=== PATIENT | male | born 1960 | race Caucasian/White ===

== ENCOUNTER → 2019-06-11 | Outpatient (CLI) | payer OTHER | END | disposition home or self-care (01) | LOC: SHCH 14:44 | PROVIDERS: ATTEND Internal Medicine Cardiovascular Disease | DX: I11.9 Hypertensive heart disease without heart failure (principal); I35.0 Nonrheumatic aortic (valve) stenosis | CPT/HCPCS: 93306 ==

== ENCOUNTER 2019-07-15 15:26 | Inpatient (IN) | payer OTHER ==
[~2019-07-15] VITALS: Ht 182.9 cm; Wt 104.8 kg
[~2019-07-15 15:26] MED LIST: AMLO-74 PO; ASCO100T12 PO; ASPI-1197 PO; CHOL100018 PO; CYAN250010 PO; CYCL10TA7 PO; FENO54TA6 PO; MULT-1258 PO; PARO-37 PO; PROC5TAB12 PO; PROP20TA7 PO; SIMV5TAB58 PO; TAMS-1 PO
[2019-07-15 16:33] LABS: BASOPHILS % (AUTO) 0.7 % (0.0-5.0); EOSINOPHILS % (AUTO) 2.9 % (0.0-8.0); HEMATOCRIT 27.8 % (42-54); LYMPHOCYTES % (AUTO) 28.8 % (21.0-51.0); MEAN CORPUSCULAR HEMOGLOBIN 30.9 pg (27.0-33.0); MEAN CORPUSCULAR HGB CONC 34.3 g/dL (32.0-36.0); MONOCYTES % (AUTO) 7.1 % (3.0-13.0); NEUTROPHILS % (AUTO) 60.5 % (40.0-77.0); NUCLEATED RED BLOOD CELLS 0.1 % (0.0-0.19); PLATELET COUNT (AUTO) 394 K/uL (130-400); RED BLOOD CELL COUNT(AUTO) 3.09 MIL/uL (4.50-6.20); WHITE BLOOD COUNT (AUTO) 7.2 K/uL (4.8-10.8)
[2019-07-15 16:49] LABS: CREATININE 1.4 mg/dL (0.5-1.5); POTASSIUM 4.1 mmol/L (3.5-5.1)
[2019-07-15 16:52] LABS: INR 1.01 (0.85-1.15); PARTIAL THROMBOPLASTIN TIME 26.8 SEC (26.3-35.5); PROTHROMBIN TIME 10.6 SEC (9.6-11.6)
[2019-07-15 16:55] LABS: ALBUMIN 2.9 g/dL (3.5-5.0); BILIRUBIN,TOTAL 0.3 mg/dL (0.2-1.0); CRP QUANTITATIVE 14.9 mg/L (0.00-9.0); TOTAL PROTEIN, SERUM 6.7 g/dL (6.0-8.3)
[2019-07-15 16:57] LABS: APPEARANCE,URINE Clear (CLEAR); BILIRUBIN,URINE Negative (NEGATIVE); COLOR,URINE Yellow (YELLOW); GLUCOSE, URINE (UA) Negative (NEGATIVE); KETONES,URINE Negative (NEGATIVE); LEUKOCYTE ESTERASE ,URINE Negative (NEGATIVE); NITRATE,URINE Negative (NEGATIVE); OCCULT BLOOD,URINE Moderate (NEGATIVE); PROTEIN,URINE Negative (NEGATIVE); UROBILINOGEN,URINE 0.2 mg/dL (0.2-1.0)
[2019-07-15 17:23] LABS: BACTERIA,URINE Rare /HPF (None Seen); SQUAMOUS EPITHELIAL CELL,UR Rare /HPF (0-2); WBC,URINE 0-1 /HPF (0-1)
[2019-07-15 18:00] LABS: ERYTHROCYTE SEDIMENTATION RATE 60 MM/HR (0-20)
[2019-07-15] MEDS ORDERED: MORPHINE SULFATE 2 MG/ML 1ML SYG IVP PRN (19:45)
[2019-07-15] MEDS ORDERED: MORPHINE SULFATE 4 MG/1ML SYG IVP PRN (19:45)
[2019-07-15] MEDS ORDERED: METOPROLOL TARTRATE 25 MG TAB ONE (19:48)
[2019-07-15] MEDS ORDERED: HYDRALAZINE HCL 20 MG/ML VIAL IV PRN (20:00)
[2019-07-15] MEDS: METOPROLOL TARTRATE 25 MG TAB PO SCH (21:00)
[2019-07-15] MEDS ORDERED: FAMOTIDINE/PF 20 MG/2 ML VIAL IV ONE (21:30)
[2019-07-15 21:50] VITALS: BP 146/74
[2019-07-15] MEDS ORDERED: METO25TA6 PO (22:13)
[2019-07-15] MEDS ORDERED: TRAM50TA4 PO (22:13)
[2019-07-15] MEDS ORDERED: FERR325T22 PO (22:13)
[2019-07-16] VITALS: BP 134/76
[2019-07-16 04:00] VITALS: BP 139/79
--- NOTE | 2019-07-16 08:22 | NUR ---
PAGED DR. HEAD
[2019-07-16 08:29] VITALS: BP 133/90
[2019-07-16 08:52] LABS: BASOPHILS % (AUTO) 0.9 % (0.0-5.0); EOSINOPHILS % (AUTO) 2.5 % (0.0-8.0); HEMATOCRIT 28.4 % (42-54); LYMPHOCYTES % (AUTO) 31.6 % (21.0-51.0); MEAN CORPUSCULAR HEMOGLOBIN 30.6 pg (27.0-33.0); MEAN CORPUSCULAR HGB CONC 34.5 g/dL (32.0-36.0); MEAN CORPUSCULAR VOLUME 88.5 fL (79-99); MONOCYTES % (AUTO) 7.8 % (3.0-13.0); NEUTROPHILS % (AUTO) 57.2 % (40.0-77.0); PLATELET COUNT (AUTO) 355 K/uL (130-400); RED BLOOD CELL COUNT(AUTO) 3.21 MIL/uL (4.50-6.20); WHITE BLOOD COUNT (AUTO) 7.6 K/uL (4.8-10.8)
[2019-07-16] MEDS: FAMOTIDINE/PF 20 MG/2 ML VIAL IV SCH (09:01)
[2019-07-16] MEDS: METOPROLOL TARTRATE 25 MG TAB PO SCH ×2 (09:01→19:28)
[2019-07-16 09:04] LABS: CREATININE 1.5 mg/dL (0.5-1.5); INR 1.02 (0.85-1.15); POTASSIUM 4.3 mmol/L (3.5-5.1); PROTHROMBIN TIME 10.7 SEC (9.6-11.6)
[2019-07-16 09:10] LABS: ALBUMIN 2.9 g/dL (3.5-5.0); BILIRUBIN,TOTAL 0.4 mg/dL (0.2-1.0); MAGNESIUM 1.8 mg/dL (1.80-2.40); TOTAL PROTEIN, SERUM 6.7 g/dL (6.0-8.3)
--- NOTE | 2019-07-16 10:00 | NUR ---
spoke w maria fernanda asif ,stated dr. pittman was aware and she would place orders in later today
[2019-07-16] MEDS ORDERED: POTASSIUM CHLORIDE 20MEQ/100ML 100 ML IV PRN (11:00)
[2019-07-16] MEDS ORDERED: MAGNESIUM 2GM PREMIX 50ML 50 ML IV PRN (11:00)
[2019-07-16] MEDS ORDERED: POTASSIUM CHLORIDE 10% ELIXIR 20 MEQ/15 ML UDCUP PO PRN (11:00)
--- NOTE | 2019-07-16 11:00 | NUR ---
AJAY - AWARE OF PT'S STATUS SYMPTOMS , NUMBNESS OF THE LEG DECREASED SENSATION SWELLING AND PEDAL PULSES FAINT ON RIGHT LEG STATED , DR. HEAD IS AWARE BUT THEY WONT GET TO THE PATIENT UNTIL TOMORROW STATED , PT CAN HAVE A DIET AND NPO AFTER MIDNIGHT AND THAT SHE , HERSELF WOULD PLACE ORDERS LATER TODAY FOR PLAN OF CARE
[2019-07-16 11:33] VITALS: BP 141/77
[2019-07-16] MEDS: ACETAMINOPHEN 325 MG TAB PO PRN ×2 (14:31→22:44)
--- NOTE | 2019-07-16 15:57 | NUR ---
DCP CM met with pt discussed dc plans. Pt is independent prior to admission, lives at home with spouse. Pt states he goes to [facility] prior to admission due to prior surgery. Pt feels safe to go back home, spouse able to assist with transportation and needs as necessary. DC plan to home once stable. CM to cont to follow up. Addendum: 07/16/19 at 1558 by IBRAHIMA MORGAN LVN CM Amended: Links added.
--- NOTE | 2019-07-16 16:00 | NUR ---
paged maria fernanda asif again she stated he is still trying to coordinate with schedule but she will call me later
[2019-07-16] MEDS ORDERED: ONDANSETRON HCL 4 MG/2 ML VIAL ONE (16:44)
[2019-07-16] MEDS ORDERED: TRAM50TA4 PO (16:52)
[2019-07-16] MEDS ORDERED: ONDANSETRON HCL 4 MG/2 ML VIAL IVP PRN (17:00)
--- NOTE | 2019-07-16 17:12 | NUR ---
ANA AWARE THAT , PER EKG TECH THEY ARE NOT ABLE TO DO VENOUS DOPPLER , UNTIL THE ANEURYSM IS TAKEN CARE OF. NO NEW ORDERS
[2019-07-16 17:38] VITALS: BP 139/72
[2019-07-16 19:00] VITALS: BP 124/69
--- NOTE | 2019-07-16 19:00 | NUR ---
dr. pittman still pending call from maria fernanda, made aware am leaving for my shift but night nurse will be bruce and ext [phone] she stated "thanks"
[2019-07-16] MEDS: TRAMADOL HCL 50 MG TABLET PO PRN (22:43)
[2019-07-16] MEDS ORDERED: MORPHINE SULFATE 4 MG/1ML SYG IV PRN (23:45)
[2019-07-16] MEDS ORDERED: MORPHINE SULFATE 4 MG/1ML SYG ONE (23:52)
[2019-07-17] VITALS (7 sets, daily range): BP systolic 99–153; BP diastolic 63–91
[2019-07-17 05:05] LABS: HEMATOCRIT 28.1 % (42-54); MEAN CORPUSCULAR HEMOGLOBIN 30.7 pg (27.0-33.0); MEAN CORPUSCULAR HGB CONC 34.5 g/dL (32.0-36.0); PLATELET COUNT (AUTO) 314 K/uL (130-400); RED BLOOD CELL COUNT(AUTO) 3.16 MIL/uL (4.50-6.20); RED CELL DISTRIBUTION WIDTH 12.8 % (11.0-15.5); WHITE BLOOD COUNT (AUTO) 7.9 K/uL (4.8-10.8)
[2019-07-17 05:19] LABS: CREATININE 1.5 mg/dL (0.5-1.5); MAGNESIUM 2.3 mg/dL (1.80-2.40); POTASSIUM 4.7 mmol/L (3.5-5.1)
[2019-07-17] MEDS: MORPHINE SULFATE 2 MG/ML 1ML SYG IVP PRN (06:53)
[2019-07-17] MEDS: ONDANSETRON HCL 4 MG/2 ML VIAL IVP PRN (06:53)
[2019-07-17] MEDS: METOPROLOL TARTRATE 25 MG TAB PO SCH ×2 (10:13→20:48)
[2019-07-17] MEDS: FAMOTIDINE/PF 20 MG/2 ML VIAL IV SCH (10:13)
[2019-07-17] MEDS ORDERED: KETOROLAC TROMETHAMINE 15MG/ML ONE (10:23)
[2019-07-17] MEDS ORDERED: KETOROLAC TROMETHAMINE 15MG/ML IM ONE (11:27)
--- NOTE | 2019-07-17 14:10 | NUR ---
DR. ADILENE SKINNER CALLED MD DIRECTLY TO CELL PHONE PROVIDED TO REPORT CT ANGIO ABD/PELVIS RESULTS AND VENOUS DOPPLER RESULTS. NO ANSWER AT THIS TIME. UNABLE TO LEAVE VOICEMAIL "VOICEMAIL FULL". SENT TEXT MESSAGE WITH MY DIRECT CALLBACK NUMBER. AWAITING CALLBACK
[2019-07-17] MEDS: SODIUM CHLORIDE 0.9% 1000ML 1,000 ML IV SCH (15:52)
--- NOTE | 2019-07-17 16:15 | NUR ---
DR. ADILENE FRANCISCO AWARE OF CT ANGIO/PELVIS RESULTS. STATES NO PSEUDOANEURYSM NOTED SO NO PLANS FOR SURGERY. ALSO STATES OKAY TO FEED PATIENT AND WOULD STOP BY LATER TODAY TO TALK TO PATIENT REGARDING RESULTS.
--- NOTE | 2019-07-17 18:10 | NUR ---
DR. HEAD CALLED DR. HEAD TO REPORTS US VENOUS DOPPLER RESULTS FROM 07/16/19. NURSE ANSWERED MD'S PHONE AND TOLD ME SHE WOULD TAKE MESSAGE FOR DR. HEAD. I REPLIED THAT PATIENTS US VENOUS DOPPER RESULTS POSITIVE FOR DVT IN FEMORAL VEIN. NURSE THAT ANSWERED BY CALL READBACK THE INFORMATION TO ME AND TOLD ME SHE WOULD INFORM DR. HEAD.
--- NOTE | 2019-07-17 20:00 | NUR ---
ASSESSMENT NOTE PATIENT AWAKE, ALERT, OX3, NO SOB,NO C/O PAIN AT THIS TIME, RIGHT GROIN WITH HEMATOMA ON PALPATION, BLE PEDAL PULSES PRESENT, AWAITING FOR ADILENE BOSE TO SEE PATIENT, PATIENTS AT BEDSIDE, TEACH PATIENT AND PATIENTS PLAN OF CARE AND EXPECTED OUTCOME, BOTH VERBALIZE UNDERSTANDING VIA TEACH BACK
[2019-07-18 03:15] VITALS: BP 117/67
[2019-07-18] MEDS: SODIUM CHLORIDE 0.9% 1000ML 1,000 ML IV SCH ×2 (03:48→17:40)
[2019-07-18 04:30] LABS: HEMATOCRIT 29.5 % (42-54); MEAN CORPUSCULAR HEMOGLOBIN 30.6 pg (27.0-33.0); MEAN CORPUSCULAR HGB CONC 34.6 g/dL (32.0-36.0); MEAN CORPUSCULAR VOLUME 88.5 fL (79-99); NUCLEATED RED BLOOD CELLS 0.1 % (0.0-0.19); PLATELET COUNT (AUTO) 288 K/uL (130-400); RED BLOOD CELL COUNT(AUTO) 3.33 MIL/uL (4.50-6.20); RED CELL DISTRIBUTION WIDTH 13.1 % (11.0-15.5); WHITE BLOOD COUNT (AUTO) 8.6 K/uL (4.8-10.8)
[2019-07-18 04:36] LABS: CREATININE 1.4 mg/dL (0.5-1.5); POTASSIUM 4.1 mmol/L (3.5-5.1)
[2019-07-18] MEDS: TRAMADOL HCL 50 MG TABLET PO PRN (06:57)
[2019-07-18 08:10] VITALS: BP 127/73
[2019-07-18] MEDS: FAMOTIDINE/PF 20 MG/2 ML VIAL IV SCH (08:51)
[2019-07-18] MEDS: METOPROLOL TARTRATE 25 MG TAB PO SCH ×2 (08:51→20:44)
[2019-07-18 11:10] VITALS: BP 135/79
[2019-07-18 16:16] VITALS: BP 143/77
[2019-07-18 19:10] VITALS: BP 139/70
--- NOTE | 2019-07-18 19:35 | NUR ---
md visit dr. pittman to see and examen patient with plan for surgery tomorrow, npo after midnite for surgery plan
[2019-07-18] MEDS ORDERED: CEFAZOLIN SODIUM 1 GM VIAL IVP PRN (20:00)
[2019-07-18] MEDS ORDERED: DIPHENHYDRAMINE HCL 25 MG CAPSULE PO PRN (20:15)
--- NOTE | 2019-07-18 22:00 | NUR ---
FLEETS ENEMA NO BM FOR 4 DAYS, PER ORDER FLEETS ENEMA GIVEN, TOLERATED WELL, POSITIVE BROWN STOOL RETURN
--- NOTE | 2019-07-18 22:15 | NUR ---
PREP PATIENT CLIPPED FROM CHIN TO FEET ORDERED, HIBICLENS SHOWERED GIVEN ORDERED, TOLERATED WELL
[2019-07-18 23:34] VITALS: BP 155/74
[2019-07-19] VITALS (18 sets, daily range): BP systolic 108–163; BP diastolic 61–82
[2019-07-19 04:10] LABS: HEMATOCRIT 28.4 % (42-54); MEAN CORPUSCULAR HEMOGLOBIN 30.4 pg (27.0-33.0); MEAN CORPUSCULAR HGB CONC 34.5 g/dL (32.0-36.0); MEAN CORPUSCULAR VOLUME 88.1 fL (79-99); PLATELET COUNT (AUTO) 234 K/uL (130-400); RED BLOOD CELL COUNT(AUTO) 3.23 MIL/uL (4.50-6.20); RED CELL DISTRIBUTION WIDTH 12.9 % (11.0-15.5); WHITE BLOOD COUNT (AUTO) 8.4 K/uL (4.8-10.8)
[2019-07-19 04:19] LABS: INR 1.02 (0.85-1.15); PARTIAL THROMBOPLASTIN TIME 28.5 SEC (26.3-35.5); PROTHROMBIN TIME 10.7 SEC (9.6-11.6)
[2019-07-19 04:26] LABS: CREATININE 1.1 mg/dL (0.5-1.5); POTASSIUM 3.8 mmol/L (3.5-5.1)
[2019-07-19] MEDS: SODIUM CHLORIDE 0.9% 1000ML 1,000 ML IV SCH ×3 (06:49→23:33)
[2019-07-19] MEDS: FAMOTIDINE/PF 20 MG/2 ML VIAL IV SCH (07:19)
[2019-07-19] MEDS: METOPROLOL TARTRATE 25 MG TAB PO SCH ×2 (09:39→20:19)
[2019-07-19] MEDS ORDERED: LIDOCAINE PF 2% 5ML ABBOJECT ONE (13:49)
[2019-07-19] MEDS ORDERED: FENTANYL CITRATE PF 50 MCG/1 ML 2ML VIAL ONE (13:49)
[2019-07-19] MEDS ORDERED: ROCURONIUM 10MG/1ML SYR 10 MG/ML ML ONE (13:49)
[2019-07-19] MEDS ORDERED: PROPOFOL 10 MG/ML 20ML VIAL IV ONE (13:49)
[2019-07-19] MEDS ORDERED: MIDAZOLAM HCL 1 MG/ML 2ML VIAL ONE (13:49)
--- NOTE | 2019-07-19 13:51 | NUR ---
TRANSFER TO PREOP PATIENT TRANSFERRED TO PREOP PENDING RIGHT GROIN LYMPOCELE DRAINAGE. VITAL SIGNS STABLE, AAOX3. PATIENT AND TO BE TRANSFERRED TO TELEMETRY FLOOR AFTER PROCEDURE.
[2019-07-19] MEDS ORDERED: ONDANSETRON HCL 4 MG/2 ML VIAL ONE (14:16)
[2019-07-19] MEDS ORDERED: DiphenhydrAMINE HCL 50 MG/ML VIAL ONE (14:16)
[2019-07-19] MEDS ORDERED: SUCCINYLCHOLINE 200MG/10ML SYR ONE (14:18)
--- NOTE | 2019-07-19 14:25 | NUR ---
REPORT CALLED REPORT GIVEN TO DANIELA ADAMS REGARDING PENDING SURGERY AND TRANSFER TO ROOM 230
[2019-07-19] MEDS ORDERED: BACITRACIN 50,000 UNIT VIAL ONE (14:34)
[2019-07-19] MEDS ORDERED: BUPIVACAINE/PF 0.5% 30ML VIAL ONE (14:37)
[2019-07-19] MEDS ORDERED: GLYCOPYRROLATE 1 MG/5 ML SYRINGE ONE (14:40)
[2019-07-19] MEDS ORDERED: NEOSTIGMINE 5MG/5ML SYR IV ONE (14:40)
[2019-07-19] MEDS ORDERED: MEPERIDINE-PF 25 MG/ML SYG ONE (15:43)
--- NOTE | 2019-07-19 20:00 | NUR ---
PM NOTE PATIENT RESTING IN BED, WATCHING TV. NO S/S OF DISTRESS. STATES PAIN TO RIGHT GROIN. RIGHT GROIN SITE C/D/I, OLIMPIA DRAIN NOTED. NO BLEEDING OR SWELLING NOTED. FAMILY AT BEDSIDE. ON TELEMETRY PATIENT RUNNING SR AT 95. ENCOURAGED TO CALL FOR ASSISTANCE. VERBALIZED UNDERSTANDING. CALL LIGHT WITHIN REACH.
[2019-07-19] MEDS: APIXABAN 5 MG TABLET PO SCH (20:19)
[2019-07-19] MEDS: TRAMADOL HCL 50 MG TABLET PO PRN (20:20)
[2019-07-19] MEDS: MORPHINE SULFATE 2 MG/ML 1ML SYG IVP PRN (23:07)
[2019-07-20 00:03] VITALS: BP 138/83
[2019-07-20] MEDS: ACETAMINOPHEN 325 MG TAB PO PRN ×2 (00:44→14:47)
[2019-07-20] MEDS: MORPHINE SULFATE 2 MG/ML 1ML SYG IVP PRN (03:22)
[2019-07-20] MEDS: ONDANSETRON HCL 4 MG/2 ML VIAL IVP PRN (03:24)
[2019-07-20 03:53] LABS: HEMATOCRIT 30.5 % (42-54); MEAN CORPUSCULAR HEMOGLOBIN 29.9 pg (27.0-33.0); MEAN CORPUSCULAR HGB CONC 33.9 g/dL (32.0-36.0); MEAN CORPUSCULAR VOLUME 88.3 fL (79-99); PLATELET COUNT (AUTO) 219 K/uL (130-400); RED BLOOD CELL COUNT(AUTO) 3.45 MIL/uL (4.50-6.20); RED CELL DISTRIBUTION WIDTH 12.9 % (11.0-15.5); WHITE BLOOD COUNT (AUTO) 11.1 K/uL (4.8-10.8)
[2019-07-20 04:05] LABS: CREATININE 1.3 mg/dL (0.5-1.5); POTASSIUM 3.6 mmol/L (3.5-5.1)
[2019-07-20 04:20] VITALS: BP 150/78
--- NOTE | 2019-07-20 05:12 | NUR ---
PAGED DR. DOE SPOKE TO DR. DOE REGARDING PT HAVING >101 FEVERS AND PAIN TO DRAIN SITE. PATIENT WAS GIVEN PRN DOSE OF MORPHINE AND INFORM DR. DOE SITE TO GROIN HAD SOME DRAINAGE. WBC THIS AM WERE ALSO AT 11.1 OPPOSE TO 07/19 WHICH WERE 8.4. ORDERS WERE GIVEN TO CHANGE DRESSING RIGHT NOW AND START PATIENT ON ZOSYN Q12H. DR. DOE ALSO ORDERED TO D/C MORPHINE AND KEEP PATIENT ON TRAMADOL. NO OTHER ORDERS GIVEN. ORDERS READ BACK AND NOTED.
[2019-07-20] MEDS: ZOSYN 3.375GM+NS 50ML 50 ML IV SCH ×2 (06:23→17:41)
[2019-07-20 07:32] VITALS: BP 129/71
[2019-07-20] MEDS: METOPROLOL TARTRATE 25 MG TAB PO SCH ×2 (09:27→22:05)
[2019-07-20] MEDS: FAMOTIDINE/PF 20 MG/2 ML VIAL IV SCH (09:27)
[2019-07-20] MEDS: APIXABAN 5 MG TABLET PO SCH ×2 (09:27→22:05)
[2019-07-20] MEDS: TRAMADOL HCL 50 MG TABLET PO PRN ×2 (09:53→22:18)
[2019-07-20 11:30] VITALS: BP 103/66
[2019-07-20] MEDS ORDERED: VANCOMYCIN PROTOCOL PER PHARMACY IV SCH (14:30)
[2019-07-20] MEDS ORDERED: VANCOMYCIN 2 GM in SODIUM CHLORIDE 0.9% 500ML 500 ML IV ONE (14:30)
[2019-07-20] MEDS ORDERED: COMPOUND IV REFRIGERATED 1 EACH IVSOLN MISC PRN (14:30)
[2019-07-20 15:05] VITALS: BP 106/56
[2019-07-20] MEDS ORDERED: PHARMACY COMMUNICATION MISC SCH (20:15)
[2019-07-20 20:29] VITALS: BP 101/65
[2019-07-20] MEDS: BACITRACIN 28.4 GM OINT TP SCH (22:07)
[2019-07-20] MEDS: SODIUM CHLORIDE 0.9% 1000ML 1,000 ML IV SCH (22:18)
[2019-07-21] VITALS: BP 111/60
[2019-07-21] MEDS ORDERED: ZOSYN 3.375GM+NS 50ML 50 ML IV SCH (02:00)
[2019-07-21] MEDS ORDERED: VANCOMYCIN 1GM+NS 250ML 250 ML IV SCH (02:00)
[2019-07-21] MEDS ORDERED: ZOSYN 3.375GM+NS 50ML 50 ML IV ONE (02:44)
[2019-07-21 03:39] LABS: HEMATOCRIT 24.8 % (42-54); MEAN CORPUSCULAR HEMOGLOBIN 29.7 pg (27.0-33.0); MEAN CORPUSCULAR HGB CONC 33.7 g/dL (32.0-36.0); MEAN CORPUSCULAR VOLUME 88.3 fL (79-99); PLATELET COUNT (AUTO) 159 K/uL (130-400); RED BLOOD CELL COUNT(AUTO) 2.81 MIL/uL (4.50-6.20); RED CELL DISTRIBUTION WIDTH 13.1 % (11.0-15.5); WHITE BLOOD COUNT (AUTO) 11.3 K/uL (4.8-10.8)
[2019-07-21 03:48] LABS: BAND NEUTROPHILS % (MANUAL) 4 % (0-2); CREATININE 1.4 mg/dL (0.5-1.5); LYMPHOCYTES % (MANUAL) 22 % (22-44); MONOCYTES % (MANUAL) 6 % (2-9); POTASSIUM 3.6 mmol/L (3.5-5.1); SEGMENTED NEUTROPHILS % 68 % (40-70)
[2019-07-21 03:49] LABS: MAN.DIFF COMMENT-IMPRESSION MANUAL DIFFERENTIAL; PLATELET MORPHOLOGY COMMENT ADEQUATE
[2019-07-21 04:04] VITALS: BP 118/63
[2019-07-21 07:24] VITALS: BP 123/82
--- NOTE | 2019-07-21 08:15 | NUR ---
AM ASSESSMENT PT LAYING IN BED, HOB ELEVATED 30 DEGREES, RESTING. SPOUSE @ BEDSIDE. A/O X 3. NO SOB. NO DISTRESS NOTED. DENIES CHEST PAIN OR DISCOMFORT. DENIES PALPITATIONS. TELE: SR/STACH. 0.9% NACL INFUSING @ 75 ML/HR. DENIES N/V AND/OR DIARRHEA. RT GROIN DSG DRY & INTACT. NO BLEEDING, NO HEMATOMA, & NO DRAINAGE NOTED. OLIMPIA DRAIN PATENT & DRAINING. (+) EDEMA RLE. (+) PEDAL PULSES. RLE ELEVATED. UP TO CHAIR W/ASSISTANCE. INSTRUCTED TO CALL FOR ASSISTANCE. CALL CHARLY W/IN REACH.
[2019-07-21] MEDS: APIXABAN 5 MG TABLET PO SCH ×2 (08:46→23:08)
[2019-07-21] MEDS: METOPROLOL TARTRATE 25 MG TAB PO SCH ×2 (08:46→23:09)
[2019-07-21] MEDS: VANCOMYCIN 1GM+NS 250ML 250 ML IV SCH ×2 (08:47→23:06)
[2019-07-21] MEDS: POTASSIUM CHLORIDE 20 MEQ ERTAB PO PRN ×2 (08:49→13:28)
[2019-07-21] MEDS: FAMOTIDINE 20MG TAB 20 MG TAB PO SCH (09:05)
[2019-07-21] MEDS: TRAMADOL HCL 50 MG TABLET PO PRN ×3 (09:06→18:03)
[2019-07-21 11:18] VITALS: BP 101/61
[2019-07-21] MEDS: SODIUM CHLORIDE 0.9% 1000ML 1,000 ML IV SCH (13:16)
[2019-07-21] MEDS: ZOSYN 3.375GM+NS 50ML 50 ML IV SCH ×2 (13:17→23:07)
[2019-07-21] MEDS: ACETAMINOPHEN 325 MG TAB PO PRN (13:28)
--- NOTE | 2019-07-21 14:30 | NUR ---
DSG CHANGE DSG CHANGE TO RT GROIN DONE @ THIS TIME. NO DRAINAGE NOTED. NO HEMATOMA NOTED. OLIMPIA DRAIN ANCHORED IN PLACED, PATENT & DRAINING. BACITRACIN, 4x4s, & PAPER TAPE APPLIED.
[2019-07-21 15:06] VITALS: BP 101/60
[2019-07-21] MEDS: BACITRACIN 28.4 GM OINT TP SCH ×2 (15:15→23:07)
[2019-07-21] MEDS: ONDANSETRON HCL 4 MG/2 ML VIAL IVP PRN (18:04)
[2019-07-21 20:40] VITALS: BP 121/64
[2019-07-22] VITALS (7 sets, daily range): BP systolic 109–126; BP diastolic 57–70
[2019-07-22] MEDS: SODIUM CHLORIDE 0.9% 1000ML 1,000 ML IV SCH (02:15)
[2019-07-22 03:49] LABS: HEMATOCRIT 22.2 % (42-54); MEAN CORPUSCULAR HEMOGLOBIN 29.4 pg (27.0-33.0); MEAN CORPUSCULAR HGB CONC 33.8 g/dL (32.0-36.0); MEAN CORPUSCULAR VOLUME 87.1 fL (79-99); PLATELET COUNT (AUTO) 150 K/uL (130-400); RED BLOOD CELL COUNT(AUTO) 2.55 MIL/uL (4.50-6.20); RED CELL DISTRIBUTION WIDTH 13.6 % (11.0-15.5); WHITE BLOOD COUNT (AUTO) 8.4 K/uL (4.8-10.8)
[2019-07-22 04:02] LABS: BILIRUBIN,TOTAL 0.4 mg/dL (0.2-1.0); CREATININE 1.8 mg/dL (0.5-1.5); POTASSIUM 3.8 mmol/L (3.5-5.1); TOTAL PROTEIN, SERUM 5.5 g/dL (6.0-8.3)
[2019-07-22 04:06] LABS: BAND NEUTROPHILS % (MANUAL) 1 % (0-2); EOSINOPHILS % (MANUAL) 1 % (1-6); LYMPHOCYTES % (MANUAL) 15 % (22-44); MONOCYTES % (MANUAL) 5 % (2-9); REACTIVE LYMPHOCYTES 1 % (0-0); SEGMENTED NEUTROPHILS % 77 % (40-70)
[2019-07-22 04:07] LABS: MAN.DIFF COMMENT-IMPRESSION MANUAL DIFFERENTIAL; PLATELET MORPHOLOGY COMMENT ADEQUATE
[2019-07-22] MEDS: ZOSYN 3.375GM+NS 50ML 50 ML IV SCH ×3 (05:00→22:06)
[2019-07-22] MEDS: FAMOTIDINE 20MG TAB 20 MG TAB PO SCH (08:35)
[2019-07-22] MEDS: METOPROLOL TARTRATE 25 MG TAB PO SCH ×2 (08:36→22:05)
[2019-07-22] MEDS: BACITRACIN 28.4 GM OINT TP SCH ×2 (08:37→21:00)
[2019-07-22] MEDS: TRAMADOL HCL 50 MG TABLET PO PRN ×2 (08:43→19:59)
[2019-07-22] MEDS ORDERED: COMPOUND IV REFRIGERATED 1 EACH IVSOLN MISC PRN (09:00)
[2019-07-22] MEDS: VANCOMYCIN 750MG + NS 250 ML IV SCH ×4 (09:26→22:05)
[2019-07-22] MEDS: ACETAMINOPHEN 325 MG TAB PO PRN (14:12)
--- NOTE | 2019-07-22 16:58 | NUR ---
VISIT DR BORJA IN TO SEE PT. SPOUSE @ BEDSIDE. MD INFORMED ELIQUIS NOT GIVEN THIS AM DUE TO DROP IN HGB. DR DOE TO BE ASKED OF THE POSSIBILITY OF PT NEEDING AN IVC FILTER OR ANTICOAGULATION THERAPY.
--- NOTE | 2019-07-22 20:30 | NUR ---
RIGHT GROIN WOUND CARE DONE ORDERED. STERILE DRESSING APPLIED. PT TOLERATED PROCEDURE WELL
--- NOTE | 2019-07-23 01:30 | NUR ---
Dr Storm in to [facility] patient
[2019-07-23] MEDS: ACETAMINOPHEN 325 MG TAB PO PRN ×4 (02:26→23:36)
[2019-07-23 03:14] VITALS: BP 127/67
[2019-07-23 03:55] LABS: BASOPHILS % (AUTO) 0.5 % (0.0-5.0); EOSINOPHILS % (AUTO) 4.3 % (0.0-8.0); LYMPHOCYTES % (AUTO) 22.4 % (21.0-51.0); MEAN CORPUSCULAR HEMOGLOBIN 30.5 pg (27.0-33.0); NEUTROPHILS % (AUTO) 64.8 % (40.0-77.0); NUCLEATED RED BLOOD CELLS 0.1 % (0.0-0.19); PLATELET COUNT (AUTO) 149 K/uL (130-400); RED BLOOD CELL COUNT(AUTO) 2.36 MIL/uL (4.50-6.20); RED CELL DISTRIBUTION WIDTH 13.1 % (11.0-15.5); WHITE BLOOD COUNT (AUTO) 6.1 K/uL (4.8-10.8)
[2019-07-23 04:04] LABS: HEMATOCRIT 20.5 % (42-54)
[2019-07-23 04:06] LABS: CREATININE 2.1 mg/dL (0.5-1.5); POTASSIUM 3.5 mmol/L (3.5-5.1)
[2019-07-23 07:00] VITALS: BP 131/79
[2019-07-23] MEDS: BACITRACIN 28.4 GM OINT TP SCH ×2 (09:00→21:00)
[2019-07-23] MEDS: ZOSYN 3.375GM+NS 50ML 50 ML IV SCH ×2 (09:41→21:13)
[2019-07-23] MEDS: APIXABAN 5 MG TABLET PO SCH ×2 (09:41→21:12)
[2019-07-23] MEDS: FAMOTIDINE 20MG TAB 20 MG TAB PO SCH (09:41)
[2019-07-23] MEDS: METOPROLOL TARTRATE 25 MG TAB PO SCH ×2 (09:41→21:12)
[2019-07-23 11:00] VITALS: BP 138/79
[2019-07-23] MEDS: ZYVOX 600 MG TAB PO SCH ×2 (11:10→21:12)
[2019-07-23] MEDS: TRAMADOL HCL 50 MG TABLET PO PRN ×3 (11:10→23:35)
[2019-07-23] MEDS ORDERED: SODIUM CHLORIDE 0.9% 250 ML IV ONE (12:53)
[2019-07-23 15:00] VITALS: BP 111/65
[2019-07-23] MEDS: ONDANSETRON HCL 4 MG/2 ML VIAL IVP PRN (17:47)
[2019-07-23] MEDS ORDERED: MORPHINE SULFATE 2 MG/ML 1ML SYG IM PRN (18:00)
[2019-07-23 19:34] VITALS: BP 132/72
[2019-07-23 23:28] VITALS: BP 125/75
[2019-07-24 03:45] VITALS: BP 127/76
[2019-07-24 04:58] LABS: HEMATOCRIT 25.3 % (42-54); MEAN CORPUSCULAR HEMOGLOBIN 29.1 pg (27.0-33.0); MEAN CORPUSCULAR HGB CONC 34.4 g/dL (32.0-36.0); MEAN CORPUSCULAR VOLUME 84.6 fL (79-99); PLATELET COUNT (AUTO) 180 K/uL (130-400); RED BLOOD CELL COUNT(AUTO) 2.99 MIL/uL (4.50-6.20); RED CELL DISTRIBUTION WIDTH 14.6 % (11.0-15.5); WHITE BLOOD COUNT (AUTO) 6.1 K/uL (4.8-10.8)
[2019-07-24 05:12] LABS: CREATININE 1.9 mg/dL (0.5-1.5); POTASSIUM 3.6 mmol/L (3.5-5.1)
--- NOTE | 2019-07-24 06:14 | NUR ---
right groin J P drained 130 ml serosanguinous fluid.
[2019-07-24 08:30] VITALS: BP 136/82
[2019-07-24] MEDS: ZYVOX 600 MG TAB PO SCH ×2 (09:15→19:45)
[2019-07-24] MEDS: APIXABAN 5 MG TABLET PO SCH ×2 (09:15→19:46)
[2019-07-24] MEDS: FAMOTIDINE 20MG TAB 20 MG TAB PO SCH (09:15)
[2019-07-24] MEDS: ZOSYN 3.375GM+NS 50ML 50 ML IV SCH ×2 (09:16→19:46)
[2019-07-24] MEDS: BACITRACIN 28.4 GM OINT TP SCH ×2 (09:16→21:41)
[2019-07-24] MEDS: METOPROLOL TARTRATE 25 MG TAB PO SCH ×2 (09:16→19:45)
[2019-07-24] MEDS: ONDANSETRON HCL 4 MG/2 ML VIAL IVP PRN (11:47)
[2019-07-24] MEDS: TRAMADOL HCL 50 MG TABLET PO PRN ×2 (11:48→21:40)
[2019-07-24] MEDS: ACETAMINOPHEN 325 MG TAB PO PRN (11:49)
[2019-07-24 12:38] VITALS: BP 113/72
--- NOTE | 2019-07-24 16:14 | NUR ---
RD NOTIFICATION DX: RIGHT FEMORAL PSEUDO ANEURYSM. HX: HTN, BPH, HYPOTHYROID, ANEMIA. DIET: HEART HEALTHY. PO INTAKE 100% AND HAS GREAT APPETITE PER PT. HE HAS BEEN FEELING A BIT NAUSEOUS X3DAYS NOW. PT HAS BEEN HAVING A DIFFICULT TIME HAVING A BM. HE HAD NOT HAD ONE SINCE MONDAY. PT FINALLY HAD ONE TODAY. SKIN INTACT, NO EDEMA. RD RECOMMENDS TO CONTINUE CURRENT DIET. RECOMMEND A STOOL SOFTENER. RD WILL CONTINUE TO MONITOR AND FOLLOW UP NEEDED. Addendum: 07/24/19 at [address]14 [address] GONZÁ[address] RD RD Amended: Links added.
[2019-07-24] MEDS ORDERED: MAG HYDROX/AL HYDROX/SIMETH ES 30 ML SUSP UDCUP PO PRN (16:15)
[2019-07-24 16:37] VITALS: BP 114/72
[2019-07-24 19:03] VITALS: BP 131/65
--- NOTE | 2019-07-24 20:00 | NUR ---
PT HAD PSEUDO ANEURYSM. PROCEDURE TO DRAIN RIGHT GROIN LYMPHOCELE. S/P HAS HAD SWELLING TO RIGHT GROIN, REDNESS/PURPLE DISCOLORATION, TENDERNESS, AND HAS OLIMPIA DRAIN. HAD TO TOUCH ON THE LOWER GROIN SITE AREA. INCISION IN PLACE. WOUND CARE PROVIDED. PT ABLE TO AMBULATE WITH ASSIST. DVT TO RIGHT LEG. STATES DR. DOE IS AWARE OF WOUND STATUS. PT ON ELIQUIS. CONTINUES TO DRAIN TO OLIMPIA DRAIN.
--- NOTE | 2019-07-24 21:30 | NUR ---
WOUND CARE COMPLETE. APPLIED ANTIBIOTIC OINTMENT. PT TENDER TO SITE. PAIN STATED.
[2019-07-24] MEDS ORDERED: POLYETHYLENE GLYCOL 3350 17 GM POWD.PACK ONE (21:38)
[2019-07-24 23:12] VITALS: BP 127/69
[2019-07-25 02:23] LABS: APPEARANCE,URINE Clear (CLEAR); BILIRUBIN,URINE Negative (NEGATIVE); COLOR,URINE Yellow (YELLOW); GLUCOSE, URINE (UA) Negative (NEGATIVE); KETONES,URINE Negative (NEGATIVE); LEUKOCYTE ESTERASE ,URINE Negative (NEGATIVE); NITRATE,URINE Negative (NEGATIVE); OCCULT BLOOD,URINE Negative (NEGATIVE); PROTEIN,URINE Negative (NEGATIVE); UROBILINOGEN,URINE 0.2 mg/dL (0.2-1.0)
[2019-07-25 03:56] VITALS: BP 122/64
[2019-07-25 04:09] LABS: BASOPHILS % (AUTO) 0.4 % (0.0-5.0); EOSINOPHILS % (AUTO) 2.1 % (0.0-8.0); HEMATOCRIT 25.4 % (42-54); LYMPHOCYTES % (AUTO) 20.5 % (21.0-51.0); MEAN CORPUSCULAR HEMOGLOBIN 29.3 pg (27.0-33.0); MEAN CORPUSCULAR HGB CONC 34.5 g/dL (32.0-36.0); MEAN CORPUSCULAR VOLUME 84.8 fL (79-99); MONOCYTES % (AUTO) 7.6 % (3.0-13.0); NEUTROPHILS % (AUTO) 69.4 % (40.0-77.0); PLATELET COUNT (AUTO) 200 K/uL (130-400); RED BLOOD CELL COUNT(AUTO) 2.99 MIL/uL (4.50-6.20); RED CELL DISTRIBUTION WIDTH 14.7 % (11.0-15.5); WHITE BLOOD COUNT (AUTO) 7.1 K/uL (4.8-10.8)
[2019-07-25 04:22] LABS: CREATININE 1.7 mg/dL (0.5-1.5); MAGNESIUM 1.8 mg/dL (1.80-2.40); PHOSPHORUS 3.5 mg/dL (2.5-4.9); POTASSIUM 3.3 mmol/L (3.5-5.1)
[2019-07-25] MEDS: POTASSIUM CHLORIDE 20 MEQ ERTAB PO PRN ×2 (06:24→16:53)
[2019-07-25] MEDS ORDERED: TRAMADOL HCL 50 MG TABLET PO PRN (07:45)
[2019-07-25] MEDS ORDERED: MORPHINE SULFATE 2 MG/ML 1ML SYG IVP PRN (07:45)
[2019-07-25 07:46] VITALS: BP 141/73
[2019-07-25] MEDS: POLYETHYLENE GLYCOL 3350 17 GM POWD.PACK PO SCH (08:09)
[2019-07-25] MEDS: FAMOTIDINE 20MG TAB 20 MG TAB PO SCH (08:09)
[2019-07-25] MEDS: BACITRACIN 28.4 GM OINT TP SCH ×2 (08:09→20:54)
[2019-07-25] MEDS: METOPROLOL TARTRATE 25 MG TAB PO SCH ×2 (08:09→20:53)
[2019-07-25] MEDS: APIXABAN 5 MG TABLET PO SCH ×2 (08:09→20:52)
[2019-07-25] MEDS: ZYVOX 600 MG TAB PO SCH ×2 (10:51→20:53)
[2019-07-25] MEDS: ZOSYN 3.375GM+NS 50ML 50 ML IV SCH ×2 (10:51→20:53)
[2019-07-25 11:17] VITALS: BP 133/79
[2019-07-25] MEDS: ACETAMINOPHEN 325 MG TAB PO PRN ×2 (14:20→20:53)
--- NOTE | 2019-07-25 15:34 | NUR ---
DC PLAN PATIENT SIGNED SHANNON FOR [facility] [place] [place] [facility]. PATIENT NEEDS THERAPY WELL OLIMPIA DRAIN AND ANTIBIOTICS. INFO FAXED AND EMAILED. LEFT MESSAGE WITH BOSSMAN OF REFERRAL. Addendum: 07/25/19 at 1536 by JULIA CELESTIN RN CM Amended: Links added.
[2019-07-25 15:36] VITALS: BP 112/67
--- NOTE | 2019-07-25 15:48 | NUR ---
DC PLAN DELAY IN SENDING REFERRAL TO IRU. PATIENT SAYS HE HAS JAW PAIN THAT STARTED ABOUT 3 DAYS AGO. HURTS TO CHEW AND FEELS JAW IS MISALIGNED. SAYS THAT COUNTY COMMISSIONER IS AWARE. NURSE SAID THAT SHE IS PENDING TO SEE WHAT DR. DRISCOLL RECOMMENDS. THERE WAS ALSO THE QUESTION REGARDING ANTIBIOTIC TREATMENT CURRENTLY ON ZYVOX PO AND SOZYN IV. WANTED TO KNOW WHICH WOULD BE CONTINUE AND FOR HOW LONG. GOT ANSWER TODAY FROM JOSE MARIA FLORES. SAID ZYVOX PO FOR 7 MORE DAYS. Addendum: 07/25/19 at 1550 by JULIA CELESTIN RN CM Amended: Links added.
[2019-07-25 19:16] VITALS: BP 131/64
[2019-07-25 23:27] VITALS: BP 123/70
[2019-07-26 03:15] VITALS: BP 150/72
[2019-07-26 03:29] LABS: BASOPHILS % (AUTO) 0.4 % (0.0-5.0); EOSINOPHILS % (AUTO) 4.5 % (0.0-8.0); HEMATOCRIT 26.9 % (42-54); LYMPHOCYTES % (AUTO) 21.9 % (21.0-51.0); MEAN CORPUSCULAR VOLUME 85.5 fL (79-99); MONOCYTES % (AUTO) 8.8 % (3.0-13.0); NEUTROPHILS % (AUTO) 64.4 % (40.0-77.0); NUCLEATED RED BLOOD CELLS 0.1 % (0.0-0.19); PLATELET COUNT (AUTO) 240 K/uL (130-400); RED BLOOD CELL COUNT(AUTO) 3.14 MIL/uL (4.50-6.20); RED CELL DISTRIBUTION WIDTH 14.5 % (11.0-15.5); WHITE BLOOD COUNT (AUTO) 6.5 K/uL (4.8-10.8)
[2019-07-26 03:37] LABS: CREATININE 1.6 mg/dL (0.5-1.5); PHOSPHORUS 3.8 mg/dL (2.5-4.9); POTASSIUM 3.4 mmol/L (3.5-5.1)
[2019-07-26] MEDS ORDERED: LIDOCAINE HCL-MPF 1% 2ML VIAL IV PRN (04:30)
[2019-07-26] MEDS ORDERED: SODIUM CHLORIDE 0.9% 100 ML IV ONE (04:38)
[2019-07-26] MEDS: ACETAMINOPHEN 325 MG TAB PO PRN (04:47)
[2019-07-26 07:00] VITALS: BP 129/72
[2019-07-26] MEDS: BACITRACIN 28.4 GM OINT TP SCH (09:00)
[2019-07-26] MEDS: POLYETHYLENE GLYCOL 3350 17 GM POWD.PACK PO SCH (09:00)
[2019-07-26] MEDS: APIXABAN 5 MG TABLET PO SCH (09:17)
[2019-07-26] MEDS: FAMOTIDINE 20MG TAB 20 MG TAB PO SCH (09:17)
[2019-07-26] MEDS: ZYVOX 600 MG TAB PO SCH (09:17)
[2019-07-26] MEDS: METOPROLOL TARTRATE 25 MG TAB PO SCH (09:18)
[2019-07-26] MEDS: POTASSIUM CHLORIDE 20 MEQ ERTAB PO PRN (09:18)
[2019-07-26] MEDS: ZOSYN 3.375GM+NS 50ML 50 ML IV SCH (09:18)
[2019-07-26] MEDS ORDERED: LACTOBACILLUS RHAMNOSUS GG 1 EACH CAP.SPRINK ONE (10:53)
[2019-07-26 11:00] VITALS: BP 137/71
[2019-07-26] MEDS ORDERED: LACTOBACILLUS RHAMNOSUS GG 1 EACH CAP.SPRINK PO SCH (11:00)
--- NOTE | 2019-07-26 12:23 | NUR ---
DC PLAN CHECKED WITH [facility] SAID THAT THEY HAVE SUBMITTED AND PLACED URGENT FOR FASTER DECISION. Addendum: 07/26/19 at 1224 by JULIA CELESTIN RN CM Amended: Links added.
[2019-07-26 15:00] VITALS: BP 133/78
--- NOTE | 2019-07-26 15:16 | NUR ---
MACKENZIE KEITA CALLED [id number] PATIENT ACCEPTED. MOT INFO GIVEN. SPOKE TO DR. DRISCOLL SIGNED MOT. SAID OKAY FOR PATIENT DISCHARGED. HAD SPOKE TO JOSE MARIA DIVIDEND CLERK REGARDING ABX. SAID NO IV JUST ZYVOX PO FOR 7 MORE DAYS. GAVE INFO TO NURSE. LET HOUSE KNOW ABOUT MOT. SPOKE TO PATIENT REGARDING TRANSPORT. SAID NO SPOUSE WILL TRANSPORT SINCE HE IS AMBULATING AND NOT ON O2 HE WOULD LIKELY GET A BILL SAID DID NOT WANT TO TAKE CHANCE. BOSSMAN CALLED WITH ADDITIONAL QUESTIONS. DR. BARBER WANTS PARAMETERS ON OLIMPIA DRAIN. LET NURSE KNOW. Addendum: 07/26/19 at 1519 by JULIA CELESTIN RN CM Amended: Links added.
--- NOTE | 2019-07-26 18:15 | NUR ---
DISCHARGE INSTRUCTIONS GIVEN, PIV REMOVED AND INTACT, REPORT CALLED TO [facility], SPOKE TO NEL RN, DISCHARGED TO FAMILY VEHICLE VIA WHEELCHAIR.
[2019-07-26] MEDS ORDERED: PSYLLIUM SEED 1 EACH PACKET PO SCH (21:00)
== END 2019-07-26 18:40 | DRG 803 ==
LOC: EDH 15:26 → EDHIP 18:12 → OBSVTOIN 18:12 → 4BH 21:08 → 2AH 07-19 16:44 → UNDODISIN 07-26 18:40
PROVIDERS: ADMIT Internal Medicine; ATTEND Internal Medicine
PROC: 07BH0ZZ Excision of Right Inguinal Lymphatic, Open Approach (ICD-10-PCS; principal; 2019-07-19 14:10)
PROC: 30233N1 Transfusion of Nonautologous Red Blood Cells into Peripheral Vein, Percutaneous Approach (ICD-10-PCS; 2019-07-23)
DX: I89.8 Other specified noninfective disorders of lymphatic vessels and lymph nodes (principal); I82.411 Acute embolism and thrombosis of right femoral vein; D62 Acute posthemorrhagic anemia; L03.314 Cellulitis of groin; J90 Pleural effusion, not elsewhere classified; E03.9 Hypothyroidism, unspecified; E78.5 Hyperlipidemia, unspecified; I10 Essential (primary) hypertension; I72.4 Aneurysm of artery of lower extremity; N40.0 Benign prostatic hyperplasia without lower urinary tract symptoms; N50.1 Vascular disorders of male genital organs; K21.9 Gastro-esophageal reflux disease without esophagitis; J45.909 Unspecified asthma, uncomplicated; Z79.01 Long term (current) use of anticoagulants; Z83.3 Family history of diabetes mellitus; Z79.899 Other long term (current) drug therapy; Z95.3 Presence of xenogenic heart valve
CPT/HCPCS: 36415; 71045; 74018; 74174; 74176; 76882; 80048; 80053; 80202; 81001; 81003; 82270; 82550; 82705; 82948; 83605; 83630; 83735; 84100; 84484; 85025; 85027; 85378; 85610; 85651; 85730; 86140; 86850; 86900; 86901; 86922; 87040; 88302; 93005; 93306; 93971; 97039; A4606; G0378; J0330; J0690; J1200; J1885; J2001; J2175; J2250; J2270; J2405; J2543; J2704; J2710; J3010; J3370; J3475; J3480; J3490; J7030; J7040; P9016; Q0163

== ENCOUNTER 2019-08-15 09:43 | Inpatient (IN) | payer OTHER ==
[~2019-08-15] VITALS: Ht 185.4 cm; Wt 98.0 kg
[~2019-08-15 09:43] MED LIST changes: -AMLO-74 PO; -ASCO100T12 PO; -CHOL100018 PO; -CYAN250010 PO; +FERR325T22 PO; +METO25TA6 PO; -MULT-1258 PO; -PROC5TAB12 PO; -PROP20TA7 PO; +TRAM50TA4 PO
[2019-08-15] MEDS ORDERED: ONDANSETRON HCL 4 MG/2 ML VIAL ONE ×2 (10:07→21:51)
[2019-08-15] MEDS ORDERED: MORPHINE SULFATE 4 MG/1ML SYG ONE (10:08)
[2019-08-15 10:36] LABS: BASOPHILS % (AUTO) 0.4 % (0.0-5.0); EOSINOPHILS % (AUTO) 2.9 % (0.0-8.0); HEMATOCRIT 33.7 % (42-54); LYMPHOCYTES % (AUTO) 18.6 % (21.0-51.0); MEAN CORPUSCULAR HEMOGLOBIN 30.2 pg (27.0-33.0); MEAN CORPUSCULAR HGB CONC 33.5 g/dL (32.0-36.0); MEAN CORPUSCULAR VOLUME 90.3 fL (79-99); MONOCYTES % (AUTO) 7.8 % (3.0-13.0); NEUTROPHILS % (AUTO) 70.3 % (40.0-77.0); PLATELET COUNT (AUTO) 197 K/uL (130-400); RED BLOOD CELL COUNT(AUTO) 3.73 MIL/uL (4.50-6.20); RED CELL DISTRIBUTION WIDTH 17.9 % (11.0-15.5); WHITE BLOOD COUNT (AUTO) 6.9 K/uL (4.8-10.8)
[2019-08-15 10:46] LABS: CREATININE 1.5 mg/dL (0.5-1.5); POTASSIUM 4.3 mmol/L (3.5-5.1)
[2019-08-15 10:50] LABS: ALBUMIN 3.2 g/dL (3.5-5.0); BILIRUBIN,TOTAL 0.4 mg/dL (0.2-1.0); CRP QUANTITATIVE 25.1 mg/L (0.00-9.0); TOTAL PROTEIN, SERUM 6.5 g/dL (6.0-8.3)
[2019-08-15 10:54] LABS: INR 1.01 (0.85-1.15); PARTIAL THROMBOPLASTIN TIME 28.7 SEC (26.3-35.5); PROTHROMBIN TIME 10.6 SEC (9.6-11.6)
[2019-08-15] MEDS ORDERED: SODIUM CHLORIDE 0.9% 500ML 500 ML IV ONE (11:27)
[2019-08-15 11:48] LABS: ERYTHROCYTE SEDIMENTATION RATE 43 MM/HR (0-20)
[2019-08-15] MEDS ORDERED: IOHEXOL-350 75 ML VIAL IV ONE (12:29)
[2019-08-15] MEDS ORDERED: VANCOMYCIN 1GM+NS 250ML 250 ML IV ONE ×2 (14:09→17:30)
[2019-08-15] MEDS ORDERED: ZOSYN 3.375GM+NS 50ML 50 ML IV ONE (15:31)
[2019-08-15] MEDS ORDERED: MORPHINE SULFATE 2 MG/ML 1ML SYG ONE (15:41)
[2019-08-15 17:08] VITALS: BP 143/78
[2019-08-15] MEDS ORDERED: VANCOMYCIN PROTOCOL PER PHARMACY IV SCH (17:15)
[2019-08-15] MEDS ORDERED: POTASSIUM CHLORIDE 20MEQ/100ML 100 ML IV PRN (17:15)
[2019-08-15] MEDS ORDERED: POTASSIUM CHLORIDE 10% ELIXIR 20 MEQ/15 ML UDCUP PO PRN (17:15)
[2019-08-15] MEDS ORDERED: LIDOCAINE HCL-MPF 1% 2ML VIAL IV PRN (17:15)
[2019-08-15] MEDS ORDERED: MORPHINE SULFATE 2 MG/ML 1ML SYG IVP PRN (17:15)
[2019-08-15] MEDS ORDERED: HYDRALAZINE HCL 20 MG/ML VIAL IV PRN (17:30)
--- NOTE | 2019-08-15 17:30 | NUR ---
ADMISSION RECEIVED PT FROM ER, A&OX3, CALM COOPERATIVE AND DOES NOT APPEAR TO BE IN ANY DISTRESS NOR ANY NEURO DEFICITS PRESENT. PT DOES C/O RT GROIN PAIN, OLIMPIA DRAIN WITH SEROSANGUINEOUS DRAINAGE PRESENT. PT IS AMBULATORY FROM GURNEY TO BED, GAIT SLOW AND UNSTEADY WITH ASSIST WITH PAIN TO RT LEG WITH WEIGHT BEARING. DP/PT PULSES PALPABLE. CALL LIGHT WITHIN REACH, FAMILY AT BEDSIDE.
[2019-08-15] MEDS ORDERED: TRAMADOL HCL 50 MG TABLET PO PRN (19:00)
[2019-08-15] MEDS ORDERED: CYCLOBENZAPRINE HCL 10 MG TABLET PO PRN (19:00)
[2019-08-15 19:06] VITALS: BP 125/88
[2019-08-15] MEDS: SIMVASTATIN 10 MG TABLET PO SCH (21:42)
[2019-08-15] MEDS: TAMSULOSIN HCL 0.4 MG CAP.ER.24H PO SCH (21:43)
[2019-08-15] MEDS: PAROXETINE HCL 20 MG TABLET PO SCH (21:44)
[2019-08-15] MEDS: METOPROLOL TARTRATE 25 MG TAB PO SCH (21:44)
[2019-08-15] MEDS: ASPIRIN 81MG TAB.CHEW PO SCH (21:44)
[2019-08-15] MEDS: ZOSYN 3.375GM+NS 50ML 50 ML IV SCH (21:54)
[2019-08-15] MEDS: MORPHINE SULFATE 2 MG/ML 1ML SYG IVP PRN (22:53)
[2019-08-15] MEDS: ONDANSETRON HCL 4 MG/2 ML VIAL IVP PRN (22:54)
[2019-08-15 23:39] VITALS: BP 162/76
[2019-08-16] MEDS ORDERED: APIXABAN 5 MG TABLET PO ONE (00:08)
[2019-08-16] MEDS: APIXABAN 5 MG TABLET PO SCH (00:15)
[2019-08-16] MEDS ORDERED: ACET-2247 PO (02:06)
[2019-08-16] MEDS ORDERED: BACI1OIN6 TP (02:06)
[2019-08-16] MEDS ORDERED: FAMO20TA8 PO (02:06)
[2019-08-16] MEDS: ONDANSETRON HCL 4 MG/2 ML VIAL IVP PRN ×4 (03:02→21:56)
[2019-08-16] MEDS: MORPHINE SULFATE 2 MG/ML 1ML SYG IVP PRN ×4 (03:02→22:10)
[2019-08-16 03:04] VITALS: BP 138/83
[2019-08-16] MEDS: ZOSYN 3.375GM+NS 50ML 50 ML IV SCH ×3 (04:05→21:39)
[2019-08-16 07:45] VITALS: BP 127/92
[2019-08-16] MEDS: VANCOMYCIN 1GM+NS 250ML 250 ML IV SCH ×2 (08:06→19:21)
[2019-08-16] MEDS: METOPROLOL TARTRATE 25 MG TAB PO SCH ×2 (08:49→21:38)
[2019-08-16] MEDS: FERROUS SULFATE 325 MG TABLET.DR PO SCH (08:49)
[2019-08-16 11:30] VITALS: BP 108/66
--- NOTE | 2019-08-16 15:12 | NUR ---
Small linear abrasion to right groin dry and intact scab in place. Dressing dry and intact. No further recommendations unless drainage resumes. Keep dressing dry. Spoke with BRYAN Guzman regarding care.
[2019-08-16 15:24] VITALS: BP 118/66
--- NOTE | 2019-08-16 18:46 | NUR ---
cm note met with patient and spouse. pt states resides at home with spouse, uses walker for ambulation due to wound infection. no other dme. or services. assits as needed for adls. dc plan is back to home. currently pt and spouse do wound care. Addendum: 08/16/19 at 1851 by HIMANSHU FRANCO CM Amended: Links added.
[2019-08-16 20:05] VITALS: BP 134/73
[2019-08-16] MEDS: PAROXETINE HCL 20 MG TABLET PO SCH (21:37)
[2019-08-16] MEDS: ASPIRIN 81MG TAB.CHEW PO SCH (21:37)
[2019-08-16] MEDS: SIMVASTATIN 10 MG TABLET PO SCH (21:37)
[2019-08-16] MEDS: TAMSULOSIN HCL 0.4 MG CAP.ER.24H PO SCH (21:38)
[2019-08-17 00:16] VITALS: BP 128/71
[2019-08-17] MEDS: MORPHINE SULFATE 2 MG/ML 1ML SYG IVP PRN ×5 (03:20→22:50)
[2019-08-17] MEDS: ONDANSETRON HCL 4 MG/2 ML VIAL IVP PRN ×5 (03:20→22:50)
[2019-08-17] MEDS: ZOSYN 3.375GM+NS 50ML 50 ML IV SCH ×3 (04:19→20:58)
[2019-08-17 04:25] VITALS: BP 121/70
[2019-08-17] MEDS: VANCOMYCIN 1GM+NS 250ML 250 ML IV SCH ×2 (07:28→17:47)
[2019-08-17] MEDS: FERROUS SULFATE 325 MG TABLET.DR PO SCH (07:36)
[2019-08-17 08:06] VITALS: BP 115/71
[2019-08-17] MEDS: APIXABAN 5 MG TABLET PO SCH ×2 (08:47→21:01)
[2019-08-17] MEDS: METOPROLOL TARTRATE 25 MG TAB PO SCH ×2 (08:48→20:58)
[2019-08-17 11:48] VITALS: BP 110/62
[2019-08-17 15:17] LABS: HEMATOCRIT 29.9 % (42-54); MEAN CORPUSCULAR HEMOGLOBIN 30.5 pg (27.0-33.0); MEAN CORPUSCULAR HGB CONC 34.5 g/dL (32.0-36.0); MEAN CORPUSCULAR VOLUME 88.4 fL (79-99); PLATELET COUNT (AUTO) 182 K/uL (130-400); RED BLOOD CELL COUNT(AUTO) 3.38 MIL/uL (4.50-6.20); RED CELL DISTRIBUTION WIDTH 17.2 % (11.0-15.5); WHITE BLOOD COUNT (AUTO) 5.7 K/uL (4.8-10.8)
[2019-08-17 15:30] VITALS: BP 115/69
[2019-08-17 15:30] LABS: CREATININE 1.5 mg/dL (0.5-1.5); POTASSIUM 3.9 mmol/L (3.5-5.1)
[2019-08-17 16:15] LABS: BAND NEUTROPHILS % (MANUAL) 3 % (0-2); EOSINOPHILS % (MANUAL) 5 % (1-6); LYMPHOCYTES % (MANUAL) 17 % (22-44); MONOCYTES % (MANUAL) 7 % (2-9); REACTIVE LYMPHOCYTES 6 % (0-0); SEGMENTED NEUTROPHILS % 62 % (40-70)
[2019-08-17 16:25] LABS: MAN.DIFF COMMENT-IMPRESSION MANUAL DIFFERENTIAL
[2019-08-17 20:08] VITALS: BP 113/65
[2019-08-17] MEDS: TAMSULOSIN HCL 0.4 MG CAP.ER.24H PO SCH (20:59)
[2019-08-17] MEDS: ASPIRIN 81MG TAB.CHEW PO SCH (21:00)
[2019-08-17] MEDS: SIMVASTATIN 10 MG TABLET PO SCH (21:00)
[2019-08-17] MEDS: PAROXETINE HCL 20 MG TABLET PO SCH (21:01)
[2019-08-18 00:25] VITALS: BP 128/70
[2019-08-18] MEDS: ONDANSETRON HCL 4 MG/2 ML VIAL IVP PRN ×5 (03:40→22:43)
[2019-08-18] MEDS: MORPHINE SULFATE 2 MG/ML 1ML SYG IVP PRN ×5 (03:40→22:48)
[2019-08-18] MEDS: ZOSYN 3.375GM+NS 50ML 50 ML IV SCH ×3 (04:07→21:13)
[2019-08-18 04:24] VITALS: BP 118/77
[2019-08-18 04:31] LABS: MEAN CORPUSCULAR HEMOGLOBIN 29.8 pg (27.0-33.0); MEAN CORPUSCULAR HGB CONC 34.3 g/dL (32.0-36.0); MEAN CORPUSCULAR VOLUME 87.1 fL (79-99); PLATELET COUNT (AUTO) 186 K/uL (130-400); RED BLOOD CELL COUNT(AUTO) 3.33 MIL/uL (4.50-6.20); RED CELL DISTRIBUTION WIDTH 16.7 % (11.0-15.5); WHITE BLOOD COUNT (AUTO) 5.5 K/uL (4.8-10.8)
[2019-08-18 04:52] LABS: CREATININE 1.4 mg/dL (0.5-1.5); POTASSIUM 3.7 mmol/L (3.5-5.1)
[2019-08-18] MEDS: VANCOMYCIN 1GM+NS 250ML 250 ML IV SCH ×2 (05:27→17:30)
[2019-08-18] MEDS: FERROUS SULFATE 325 MG TABLET.DR PO SCH (07:17)
[2019-08-18 08:00] VITALS: BP 116/69
[2019-08-18] MEDS: APIXABAN 5 MG TABLET PO SCH ×2 (09:05→21:10)
[2019-08-18] MEDS: METOPROLOL TARTRATE 25 MG TAB PO SCH ×2 (09:05→21:12)
[2019-08-18 11:49] VITALS: BP 123/74
[2019-08-18] MEDS: GABAPENTIN 300 MG CAPSULE PO SCH ×2 (15:04→21:10)
[2019-08-18 15:42] VITALS: BP 116/66
[2019-08-18 16:13] LABS: APPEARANCE,URINE Clear (CLEAR); BILIRUBIN,URINE Negative (NEGATIVE); COLOR,URINE Yellow (YELLOW); GLUCOSE, URINE (UA) Negative (NEGATIVE); KETONES,URINE Negative (NEGATIVE); LEUKOCYTE ESTERASE ,URINE Negative (NEGATIVE); NITRATE,URINE Negative (NEGATIVE); OCCULT BLOOD,URINE Nonhemolyzed Trace (NEGATIVE); PROTEIN,URINE Negative (NEGATIVE); UROBILINOGEN,URINE 0.2 mg/dL (0.2-1.0)
[2019-08-18 16:24] LABS: BACTERIA,URINE Rare /HPF (None Seen); WBC,URINE 0-1 /HPF (0-1)
[2019-08-18 16:25] LABS: SQUAMOUS EPITHELIAL CELL,UR Rare /HPF (0-2)
[2019-08-18 19:51] VITALS: BP 134/75
[2019-08-18] MEDS: PAROXETINE HCL 20 MG TABLET PO SCH (21:10)
[2019-08-18] MEDS: SIMVASTATIN 10 MG TABLET PO SCH (21:12)
[2019-08-18] MEDS: TAMSULOSIN HCL 0.4 MG CAP.ER.24H PO SCH (21:12)
[2019-08-18] MEDS: ASPIRIN 81MG TAB.CHEW PO SCH (21:13)
[2019-08-19] VITALS (7 sets, daily range): BP systolic 106–135; BP diastolic 59–80
[2019-08-19] MEDS: ZOSYN 3.375GM+NS 50ML 50 ML IV SCH ×3 (03:22→20:25)
[2019-08-19] MEDS: MORPHINE SULFATE 2 MG/ML 1ML SYG IVP PRN ×4 (03:36→20:26)
[2019-08-19] MEDS: ONDANSETRON HCL 4 MG/2 ML VIAL IVP PRN ×3 (03:36→20:25)
[2019-08-19 03:48] LABS: HEMATOCRIT 29.7 % (42-54); MEAN CORPUSCULAR HEMOGLOBIN 30.3 pg (27.0-33.0); MEAN CORPUSCULAR HGB CONC 34.3 g/dL (32.0-36.0); MEAN CORPUSCULAR VOLUME 88.2 fL (79-99); PLATELET COUNT (AUTO) 199 K/uL (130-400); RED BLOOD CELL COUNT(AUTO) 3.37 MIL/uL (4.50-6.20); RED CELL DISTRIBUTION WIDTH 16.8 % (11.0-15.5); WHITE BLOOD COUNT (AUTO) 5.3 K/uL (4.8-10.8)
[2019-08-19 03:57] LABS: CREATININE 1.5 mg/dL (0.5-1.5); POTASSIUM 3.5 mmol/L (3.5-5.1)
[2019-08-19] MEDS: VANCOMYCIN 1GM+NS 250ML 250 ML IV SCH ×2 (06:17→17:28)
[2019-08-19] MEDS: POTASSIUM CHLORIDE 20 MEQ ERTAB PO PRN ×2 (06:28→08:30)
--- NOTE | 2019-08-19 07:45 | NUR ---
AM ASSESSMENT PT LAYING IN BED, WATCHING TV. A/O X 3. NO SOB. NO DISTRESS NOTED. DENIES CHEST PAIN OR DISCOMFORT. DENIES PALPITATIONS. C/O INCISIONAL PAIN. IV PAIN MEDICATION TO BE GIVEN. TELE: SR 70s. DENIES N/V AND/OR DIARRHEA. RT GROIN DSG DRY & INTACT. OLIMPIA DRAIN IN PLACE, PATENT & DRAINING. (+) EDEMA TO RLE. PT UP TO CHAIR, WT BEAR TOLERATED. INSTRUCTED TO CALL FOR ASSISTANCE. CALL CHARLY W/IN REACH.
[2019-08-19] MEDS: FERROUS SULFATE 325 MG TABLET.DR PO SCH (08:29)
[2019-08-19] MEDS: APIXABAN 5 MG TABLET PO SCH ×2 (08:30→20:23)
[2019-08-19] MEDS: GABAPENTIN 300 MG CAPSULE PO SCH ×2 (08:30→20:24)
[2019-08-19] MEDS: METOPROLOL TARTRATE 25 MG TAB PO SCH ×2 (08:31→20:24)
[2019-08-19] MEDS: DOCUSATE SODIUM 100 MG CAP PO SCH ×2 (11:02→20:24)
--- NOTE | 2019-08-19 14:20 | NUR ---
DSG CHANGE RT GROIN DSG CHANGE DONE @ THIS TIME. DERMABOND TO INCISION, WELL APPROX. NO DRAINAGE NOTED. OLIMPIA DRAIN PUNCTURE SITE INTACT. OLIMPIA DRAIN PATENT & DRAINING, SEROUS FLUID. SITE CLEANSED W/NS. GAUZE & TAPE APPLIED. PT TOLERATED WELL.
[2019-08-19] MEDS: HYDROCODONE/ACETAMINOPHEN 10/325 MG TAB PO PRN (16:49)
[2019-08-19] MEDS: PAROXETINE HCL 20 MG TABLET PO SCH (20:23)
[2019-08-19] MEDS: ASPIRIN 81MG TAB.CHEW PO SCH (20:23)
[2019-08-19] MEDS: SIMVASTATIN 10 MG TABLET PO SCH (20:24)
[2019-08-19] MEDS: TAMSULOSIN HCL 0.4 MG CAP.ER.24H PO SCH (20:25)
[2019-08-20 03:42] VITALS: BP 126/80
[2019-08-20] MEDS: HYDROCODONE/ACETAMINOPHEN 10/325 MG TAB PO PRN ×2 (03:50→08:50)
[2019-08-20 04:55] LABS: BASOPHILS % (AUTO) 0.8 % (0.0-5.0); EOSINOPHILS % (AUTO) 8.9 % (0.0-8.0); HEMATOCRIT 30.5 % (42-54); LYMPHOCYTES % (AUTO) 26.3 % (21.0-51.0); MEAN CORPUSCULAR HEMOGLOBIN 30.4 pg (27.0-33.0); MEAN CORPUSCULAR HGB CONC 35.1 g/dL (32.0-36.0); MEAN CORPUSCULAR VOLUME 86.7 fL (79-99); MONOCYTES % (AUTO) 10.1 % (3.0-13.0); NEUTROPHILS % (AUTO) 53.9 % (40.0-77.0); PLATELET COUNT (AUTO) 219 K/uL (130-400); RED BLOOD CELL COUNT(AUTO) 3.51 MIL/uL (4.50-6.20); RED CELL DISTRIBUTION WIDTH 16.8 % (11.0-15.5); WHITE BLOOD COUNT (AUTO) 5.1 K/uL (4.8-10.8)
[2019-08-20 05:07] LABS: CREATININE 1.4 mg/dL (0.5-1.5); POTASSIUM 3.9 mmol/L (3.5-5.1)
[2019-08-20] MEDS: VANCOMYCIN 1GM+NS 250ML 250 ML IV SCH (05:15)
[2019-08-20] MEDS: ZOSYN 3.375GM+NS 50ML 50 ML IV SCH ×2 (05:15→12:36)
[2019-08-20] MEDS: ONDANSETRON HCL 4 MG/2 ML VIAL IVP PRN (05:20)
[2019-08-20] MEDS: MORPHINE SULFATE 2 MG/ML 1ML SYG IVP PRN ×2 (05:21→14:53)
--- NOTE | 2019-08-20 07:21 | NUR ---
Pt. was medicated with Morphine and given IV Zofran.Vitals sign remained stable, bedside report given to incoming NOD using SBar,all questions answered.
[2019-08-20 08:03] VITALS: BP 119/75
[2019-08-20] MEDS: APIXABAN 5 MG TABLET PO SCH (08:46)
[2019-08-20] MEDS: GABAPENTIN 300 MG CAPSULE PO SCH (08:46)
[2019-08-20] MEDS: DOCUSATE SODIUM 100 MG CAP PO SCH (08:46)
[2019-08-20] MEDS: METOPROLOL TARTRATE 25 MG TAB PO SCH (08:47)
[2019-08-20] MEDS: FERROUS SULFATE 325 MG TABLET.DR PO SCH (08:49)
[2019-08-20 11:54] VITALS: BP 119/70
[2019-08-20] MEDS ORDERED: DOXY100C2 PO (15:14)
[2019-08-20 15:48] VITALS: BP 124/70
--- NOTE | 2019-08-20 17:40 | NUR ---
GIVEN DISMISSAL INSTRUCTIONS TO PATIENT AND HIS , EDITH AZEVEDO. NO NEW SCRIPT. CHANGED DRESSING FROM RIGHT GROIN , SITE WITHOUT DRAINAGE NOTED. BRUISING NOTED. DRESSING CHANGE TAUGHT TO EDITH. VERBALIZED UNDERSTANDING. GIVEN SUPPLIES. REMOVED SALINE LOCK FROM RIGHT ARM AREA, IV SITE WITHOUT REDNESS NOTED. REMOVED TELE PACK. REPORTED OFF TO PRIMARY NURSE, BRYAN MILLAN.
--- NOTE | 2019-08-20 18:00 | NUR ---
DISCHARGE PT TAKEN TO PRIVATE VEHICLE VIA WC BY Radha LUKE PCP, ACCOMPANIED BY SPOUSE. NO DISTRESS NOTED.
== END 2019-08-20 18:00 | disposition home or self-care (01) | DRG 920 ==
LOC: EDH 09:43 → EDHIP 14:48 → OBSVTOIN 14:48 → 2DH 15:59 → UNDODISIN 08-20 18:00
PROVIDERS: ADMIT Internal Medicine Critical Care Medicine; ATTEND Internal Medicine Critical Care Medicine
DX: K91.873 Postprocedural seroma of a digestive system organ or structure following other procedure (principal); L03.115 Cellulitis of right lower limb; L03.314 Cellulitis of groin; Y83.8 Other surgical procedures as the cause of abnormal reaction of the patient, or of later complication, without mention of misadventure at the time of the procedure; Y82.8 Other medical devices associated with adverse incidents; D64.9 Anemia, unspecified; E03.9 Hypothyroidism, unspecified; I72.8 Aneurysm of other specified arteries; N28.9 Disorder of kidney and ureter, unspecified; I89.8 Other specified noninfective disorders of lymphatic vessels and lymph nodes; E78.5 Hyperlipidemia, unspecified; G43.909 Migraine, unspecified, not intractable, without status migrainosus; I10 Essential (primary) hypertension; I35.0 Nonrheumatic aortic (valve) stenosis; N40.0 Benign prostatic hyperplasia without lower urinary tract symptoms; Z79.01 Long term (current) use of anticoagulants; Z86.718 Personal history of other venous thrombosis and embolism; Z95.3 Presence of xenogenic heart valve
CPT/HCPCS: 36415; 73701; 76882; 80048; 80053; 80202; 81001; 82550; 83605; 85025; 85027; 85610; 85651; 85730; 86140; 87040; 97039; A6250; G0378; J2270; J2405; J2543; J3370; J7040; Q9967

== ENCOUNTER → 2019-10-22 | Outpatient (CLI) | payer OTHER ==
[~2019-10-22] MED LIST changes: +ACET-2247 PO; +BACI1OIN6 TP; +DOXY100C2 PO; +FAMO20TA8 PO
== END | disposition home or self-care (01) ==
LOC: SHCH 10:25
PROVIDERS: ATTEND Internal Medicine Cardiovascular Disease
DX: I82.513 Chronic embolism and thrombosis of femoral vein, bilateral (principal)
CPT/HCPCS: 93970

== ENCOUNTER → 2020-04-03 | Outpatient (CLI) | payer OTHER ==
[~2020-04-03] MED LIST changes: +AEC81 PO; +APIX5TAB PO; -ASPI-1197 PO; -BACI1OIN6 TP; -DOXY100C2 PO; -FAMO20TA8 PO; -FENO54TA6 PO; +FENO90CA PO; -FERR325T22 PO; +GABA-531 PO; +HYDR25TA PO; +LATA2.5D2 OU; +LEVO25TA54 PO; +MELA10CA2 PO; +METO-408 PO; -METO25TA6 PO; -TRAM50TA4 PO
== END | disposition home or self-care (01) ==
LOC: SHCH 11:25
PROVIDERS: ATTEND Internal Medicine Cardiovascular Disease
DX: R00.2 Palpitations (principal)
CPT/HCPCS: 93306

== ENCOUNTER → 2021-12-21 | Outpatient (CLI) | payer OTHER ==
[~2021-12-21] MED LIST changes: +CYCL-309 PO; -CYCL10TA7 PO; +LATA2.5D14 OU; -LATA2.5D2 OU
== END | disposition home or self-care (01) ==
LOC: SHCH 09:48
PROVIDERS: ATTEND Internal Medicine Cardiovascular Disease
DX: I35.0 Nonrheumatic aortic (valve) stenosis (principal); I11.9 Hypertensive heart disease without heart failure; E78.5 Hyperlipidemia, unspecified; Z95.2 Presence of prosthetic heart valve
CPT/HCPCS: 93306

== ENCOUNTER → 2024-05-30 | Outpatient (CLI) | payer OTHER | END | disposition home or self-care (01) | LOC: SHCH 09:55 | PROVIDERS: ATTEND Internal Medicine Cardiovascular Disease | DX: I08.3 Combined rheumatic disorders of mitral, aortic and tricuspid valves (principal); I11.9 Hypertensive heart disease without heart failure; E78.5 Hyperlipidemia, unspecified; Z95.2 Presence of prosthetic heart valve; Z95.3 Presence of xenogenic heart valve | CPT/HCPCS: 93306 ==

== ENCOUNTER → 2024-10-14 | Outpatient (CLI) | payer OTHER ==
--- NOTE | 2024-10-14 15:15 | HMCIMG ---
Exam Type: CHEST 2VWS Clinical Information: SOB, for VQ scan Comparison: None Findings: Status post aortic valve replacement. The lungs are clear of infiltrates. The heart is normal in size. The bony and soft tissue structures of the chest are unremarkable. Impression: Clear lungs.
--- NOTE | 2024-10-14 16:47 | HMCIMG ---
Exam Type: NM PULMONARY/LUNG VQ SCAN Clinical Information: shortness of breath Comparison: None Findings: Anterior and posterior pulmonary ventilation scan was performed during and following inhalation of 8 mCi of technetium 99m DTPA gas and pulmonary perfusion images were performed following intravenous injection of 4.5 mCi of 99m Tc-labeled MAA. Ventilation: homogeneous distribution of the xenon gas in both lungs during the single breath and equilibrium phases. Symmetrical clearance of the xenon gas demonstrated in the wash out phase. No evidence of air trapping. Perfusion: homogeneous distribution of the radiolabeled particles in both lungs with normal hilar and cardiac attenuation defect. No wedge shaped or focal perfusion defects are seen. Impression: No evidence of pulmonary embolism.
== END | disposition home or self-care (01) ==
LOC: RAH 10-09 12:41
PROVIDERS: ATTEND Internal Medicine Critical Care Medicine
DX: R06.02 Shortness of breath (principal); R06.00 Dyspnea, unspecified
CPT/HCPCS: 78582; 71046; A9540; A9558

== ENCOUNTER → 2025-02-03 | Outpatient (CLI) | payer OTHER ==
[~2025-02-03] MED LIST changes: -TAMS-1 PO; +TAMS-55 PO
--- NOTE | 2025-02-04 08:39 | HMCSR ---
APPROVED REPORT Laterality: Bilateral Indications r09.89 Doppler Spectral Velocity Analysis PSV / EDVPSV / EDV ECA (R) 111 / cm/sECA (L) 78 / cm/s dICA (R) 52 / 16 cm/sdICA (L) 64 / 23 cm/s Deep (R) 65 / 21 cm/smICA (L) 47 / 15 cm/s pICA (R) 72 / 16 cm/spICA (L) 59 / 20 cm/s dCCA (R) 60 / 9 cm/sdCCA (L) 64 / 15 cm/s mCCA (R) 72 / 15 cm/smCCA (L) 75 / 16 cm/s pCCA (R) 93 / 15 cm/spCCA (L) 96 / 19 cm/s Vert (R) 35 / cm/sVert (L) 31 / cm/s Subl. (R) 148 / cm/sSubl. (L) 159 / cm/s ICA/CCA 0.77ICA/CCA 0.67 Technologist Impression Minimal heterogenous plaque noted in the bilateral carotid bifurcations. WINNIE and LICA appear patent without hemodynamic significance. Bilateral vertebral arteries appear antegrade. Conclusion Minimal plaque noted in the bilateral carotids, without hemodynamic significance. Bilateral vertebral arteries appear antegrade. Conclusion Minimal plaque noted in the bilateral carotids, without hemodynamic significance. Bilateral vertebral arteries appear antegrade.
== END | disposition home or self-care (01) ==
LOC: SHCH 15:19
PROVIDERS: ATTEND Internal Medicine Cardiovascular Disease
DX: R09.89 Other specified symptoms and signs involving the circulatory and respiratory systems (principal)
CPT/HCPCS: 93880